=== PATIENT | male | born 1985 | race Caucasian/White ===

== ENCOUNTER 2016-10-20 08:30 | Outpatient (RCR) | payer OTHER ==
--- OUTSIDE RECORDS SUMMARY | 2016-09-16 08:14 | XMS REPORT ---
Author Author KOFFI WRIGHT Organization [employer] Address Unknown Phone Unavailable Care Team Providers Care Photographic Colorist Name Role Phone KOFFI WRIGHT CP Unavailable Allergies, Adverse Reactions, Alerts Substance Reaction Event Type N.K.D.A. 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 Problem Influenza with other respiratory manifestations 487.1 Active Assessment Poison poncho 692.6 Active Medications Medication Code System Code Instructions Start Date End Date Status Dosage PredniSONE [facility] [address]-02 20 MG Orally Twice a day Jul 31, 2015 Aug 05, 2015 1 tablet with food or milk Clobetasol Propionate [facility] [address]-31 0.05 % Externally Twice a day Jul 31, 2015 1 application to affected area Procedures Procedure Coding System Code Date Office Visit, Est Pt., Level 3 CPT-4 44108 Jul 31, 2015 Vital Signs Date/Time: Jul 31, 2015 Cardiac Monitoring Heart Rate 88 bpm Temperature 97.9 F Height 71 in Blood Pressure Diastolic 94 mmHg Blood Pressure Systolic 136 mmHg Results No Known Results Summary Purpose [employer] Submission
== END 2016-11-25 10:02 | disposition home or self-care (01) ==
PROVIDERS: ATTEND Family Medicine
DX: M54.41 Lumbago with sciatica, right side (principal)

== ENCOUNTER → 2017-01-04 | Outpatient (CLI) | payer OTHER ==
--- NOTE | 2017-01-04 14:17 | Diagnostic Imaging Report ---
Three views of the lumbar spine. INDICATION: Low back pain. FINDINGS: There is straightening of the upper to mid lumbar spine curvature. The alignment of the posterior spinal line is satisfactory. The vertebral body heights are preserved. No significant disc height loss. There are anterior osteophytes seen at the T12-L1 level. The SI joints appear unremarkable. IMPRESSION: Minimal degenerative changes. Dictated by: Dictated on workstation # [id number]
== END ==
LOC: RAD 09:52
PROVIDERS: ATTEND Family Medicine
DX: M54.5 Low back pain (principal)
CPT/HCPCS: 72100

== ENCOUNTER → 2017-01-13 | Outpatient (CLI) | payer OTHER ==
--- NOTE | 2017-01-13 12:26 | Diagnostic Imaging Report ---
PROCEDURE: MRI lumbar spine. TECHNIQUE: Multiplanar, multisequence MRI of the lumbar spine was performed without contrast. INDICATION: Low back pain with right leg pain. FINDINGS: There are no previous MRI examinations available for comparison. The plain film examination of the lumbar spine performed on 01/04/2017 failed to show any sign of an acute abnormality. On the parasagittal images of this exam, there does appear to be slight retrolisthesis of L5 with respect to S1. There is also mild narrowing and desiccation of the disc at L5-S1. Furthermore, there is a disc protrusion to the right at this level. The disc compresses the right ventral aspect of the thecal sac and narrows the AP diameter to approximately 5.6 mm. The disc is in close proximity to the origin of the exiting right nerve root and may encroach upon the nerve root. The alignment of the other vertebral bodies is within normal limits and the other intervertebral spaces are fairly well maintained. The thecal sac itself is somewhat slender. Most likely, this is a developmental variant. There is no evidence for spinal stenosis or nerve root encroachment at any level. At the T12-L1 level, there is moderate narrowing and desiccation of the disc. There is no sign of spinal stenosis or nerve root encroachment at this level. There is no abnormal signal arising from the cord or other vertebral bodies to indicate an acute abnormality. There is no sign of a paraspinal mass. IMPRESSION: 1. There is disc protrusion to the right at L5-S1. The disc compresses the right ventral aspect of the thecal sac and does produce spinal stenosis. The disc is also in close proximity to the exiting right nerve root and may encroach upon the nerve root. 2. The remainder of the lumbar spine is unremarkable for spinal stenosis or nerve root encroachment. 3. There is no sign of an acute bony abnormality or of a cord lesion. Dictated by: Dictated on workstation # [id number]
== END ==
LOC: RAD 09:35
PROVIDERS: ATTEND Family Medicine
DX: M51.36 Other intervertebral disc degeneration, lumbar region (principal)
CPT/HCPCS: 72148

== ENCOUNTER 2017-01-28 08:43 | Outpatient (CLI) | payer OTHER ==
[~2017-01-28] VITALS: Ht 177.8 cm; Wt 93.0 kg
[2017-01-28] MEDS ORDERED: BUPIVACAINE 0.25% 30 ML (SENSORCAINE) VIAL ONE (08:54)
[2017-01-28] MEDS ORDERED: TRIAMCINOLONE ACET (KENALOG-40) 40 MG/ML 1 ML VIAL ONE (08:54)
[2017-01-28 09:02] VITALS: BP 147/100
[2017-01-28 09:27] VITALS: BP 149/96
--- NOTE | 2017-01-28 12:20 | Pain Medicine-Procedure ---
Procedure Pre-Op/Post-Op Diagnosis Diagnosis: Disc disorder with radiculopathy, lumbar Indications for Operation Low back pain Attending Surgeon Samy Procedure Date of Service: Jan 28, 2017 Procedure: Lumbar Epidural Steroid Injection at the L5-S1 level under Fluoroscopic Guidance Procedure: Patient was identified in the holding area. After risks, benefits, and alternatives were discussed with the patient, informed consent was obtained. Patient was brought to the fluoroscopy suite and placed prone on the procedure room table. A time out was performed. Vital signs were monitored throughout the procedure. The patients low back was prepped and draped in the usual sterile fashion. The patients skin was anesthetized using 2% Lidocaine. A Tuohy needle was inserted and advanced to the L5-S1 epidural space under fluoroscopic guidance using the loss of resistance technique and intermittent projection of fluoroscopy. There was no paresthesia with needle placement. The needle position was confirmed in both the AP and lateral view. After negative aspiration 2ml of contrast was injected under live fluoroscopy which showed good spread of the contrast in the epidural space at the appropriate level, there was no intravascular or subarachnoid spread. Again, after negative aspiration for heme or CSF, 2 ml of 0.25% Bupivicaine, 2ml of preservative free normal saline, and 80mg of Kenalog was injected. The needle was removed and a sterile bandage was placed and the patient was transferred to the recovery area in stable condition. After a brief period of observation, patient was discharged to home with no new neurological deficits and no apparent complications. Complications None KAMRON BYNUM MD Jan 28, 2017 12:20 pm
== END 2017-01-28 09:29 | disposition home or self-care (01) ==
LOC: CARD 08:43
PROVIDERS: ATTEND Pain Medicine Pain Medicine
DX: M51.16 Intervertebral disc disorders with radiculopathy, lumbar region (principal); Z79.899 Other long term (current) drug therapy
CPT/HCPCS: 62323

== ENCOUNTER → 2018-10-27 | Outpatient (CLI) | payer OTHER ==
--- NOTE | 2018-10-27 09:22 | Diagnostic Imaging Report ---
EXAMINATION: Magnetic resonance imaging of the left knee without intravenous contrast DATE: October 27, 2018. COMPARISON: None. INDICATION: 32-year-old male, left knee injury on August 17, 2018. Persistent left medial knee pain. TECHNIQUE: Multiplanar, multisequence non contrast enhanced MR imaging was accomplished. FINDINGS: MENISCI: There is an oblique tear with inferior surface extension involving the body and posterior horn of the medial meniscus extending towards the posterior root attachment. There is no current medial meniscal extrusion. The lateral meniscus is intact. LIGAMENTS AND TENDONS: The anterior and posterior cruciate ligaments are intact. The medial collateral ligament is intact. The iliotibial band, mid third lateral capsular ligament, fibular collateral ligament, biceps femoris tendon, and conjoined tendon are intact. The quadriceps tendon and patella ligament are intact. JOINT: The articular cartilage surfaces are intact. There is no knee joint effusion, prominent synovitis, or intra-articular body. BONE: There is minimal edema-like signal in the medial femoral condyle and medial tibial plateau which potentially could relate to low-grade bone contusions. There is no acute fracture. There are no pathognomonic signal changes of osteonecrosis. BURSAE AND SOFT TISSUES: There is a ruptured Santos's cyst. There is nonspecific prepatellar subcutaneous edema. IMPRESSION: 1. Oblique tear with inferior surface extension involving the body and posterior horn of the medial meniscus extending towards the posterior root attachment without current medial meniscal extrusion. 2. Intact lateral meniscus. 3. Intact anterior and posterior cruciate ligaments. Additional ligaments and tendons are intact. 4. Intact articular cartilage. No knee joint effusion, prominent synovitis, or intra-articular body. 5. Ruptured Santos's cyst. 6. Minimal edema-like signal in the medial femoral condyle and medial tibial plateau potentially reflecting low-grade bone contusions. No acute fracture. Dictated by: Dictated on workstation # [id number]
== END ==
LOC: RAD 08:01
PROVIDERS: ATTEND Orthopaedic Surgery
DX: S83.242A Other tear of medial meniscus, current injury, left knee, initial encounter (principal); M71.22 Synovial cyst of popliteal space [Baker], left knee
CPT/HCPCS: 73721

== ENCOUNTER 2019-10-07 03:43 | Emergency (ER) | payer OTHER ==
[~2019-10-07] VITALS: Ht 177 cm; Wt 85.0 kg
[2019-10-07] MEDS ORDERED: LIDOCAINE/EPI 2% 1:100,00 (XYLOCAINE) 20 ML VIAL INJ ONE (04:15)
[2019-10-07] MEDS ORDERED: L.E.T. SYRINGE 5 ML TOP ONE (04:15)
[2019-10-07] MEDS ORDERED: SODIUM BICARB 8.4% 50 MEQ/50 ML VIAL IV ONE (04:15)
--- NOTE | 2019-10-07 04:37 | ED General ---
General Chief Complaint: Skin/Wound Problems Stated Complaint: SWOLLEN KNOT ON REAR END Nursing Triage Note: Pt ambulates to RM 6 with c/o "hard knot above rectum" that's worse with pressure. Pt denies any Hx of hemorrhoids. Pt denies any bleeding or pus from area. Pt reates pain 7/10. Nursing Sepsis Screen: No Definite Risk Source of Information: Patient Exam Limitations: No Limitations History of Present Illness Date Seen by Provider: Oct 07, 2019 Time Seen by Provider: 03:59 Initial Comments This 33-year-old gentleman presents to the emergency room with a painful swelling in the anal area worsening over the last week. It has now started to disrupt his sleep. He denies any rectal bleeding or drainage of pus. He has no history of hemorrhoids or abscesses. Allergies and Home Medications Allergies Coded Allergies: No Known Drug Allergies (Unverified , 10/07/19) Patient Home Medication List Home Medication List Reviewed: Yes Review of Systems Review of Systems Constitutional: no symptoms reported EENTM: no symptoms reported Respiratory: no symptoms reported Cardiovascular: no symptoms reported Gastrointestinal: see HPI Genitourinary: no symptoms reported Musculoskeletal: no symptoms reported Skin: see HPI Psychiatric/Neurological: No Symptoms Reported Hematologic/Lymphatic: No Symptoms Reported Past Gzeawdf-Cftrcj-Szmgxt Hx Patient Social History Alcohol Use: Rarely Uses Recreational Drug Use: No Smoking Status: Never a Smoker 2nd Hand Smoke Exposure: No Recent Foreign Travel: No Contact w/Someone Who Travel: No Recent Infectious Disease Expo: No Recent Hopitalizations: No Physical Abuse: No Sexual Abuse: No Mistreated: No Fear: No Seasonal Allergies Seasonal Allergies: No Past Medical History Surgeries: No Respiratory: No Cardiac: Yes Hypertension Neurological: No Genitourinary: No Gastrointestinal: No Musculoskeletal: No Endocrine: No HEENT: No Cancer: No Psychosocial: No Integumentary: No Blood Disorders: No Physical Exam Vital Signs Vital Signs - First Documented 10/07/19 03:54 Temp 36.3 Pulse 75 Resp 20 B/P (MAP) 137/101 (113) Pulse Ox 99 O2 Delivery Room Air Capillary Refill : Less Than 3 Seconds Height, Weight, BMI Height: 5'10.00" Weight: 205lbs. 0.0oz. 92.426066np; 27.00 BMI Method: General Appearance: No Apparent Distress, WD/WN HEENT: Normal ENT Inspection Neck: Normal Inspection Respiratory: Lungs Clear, Normal Breath Sounds, No Accessory Muscle Use, No Respiratory Distress Cardiovascular: Regular Rate, Rhythm, No Edema, No Murmur Gastrointestinal: Normal Bowel Sounds, Non Tender, Soft Rectal: Other (large thrombosed hemorrhoid at the 3 o'clock position) Extremity: Normal Inspection, No Pedal Edema Neurologic/Psychiatric: Alert, Oriented x3, No Motor/Sensory Deficits, Normal Mood/Affect Procedures/Interventions Progress Topical LET was applied to the anus for topical anesthesia. Skin was then prepped with Betadine. Hemorrhoid and the base of the hemorrhoid were injected with lidocaine with epinephrine. Approximately 3-4 mL were used. A radial elliptical incision about 5 mm in length was then made to evacuate clots. There was minimal bleeding. Wound was dressed with triple antibiotic ointment and gauze. Progress/Results/Core Measures Suspected Sepsis Recent Fever Within 48 Hours: No Infection Criteria Present: None New/Unexplained Altered Menta: No Sepsis Screen: No Definite Risk SIRS Temperature: Pulse: 75 Respiratory Rate: 20 Blood Pressure 137 /101 Mean: 113 Results/Orders My Orders Orders - DONNA YADAV MD Let Solution (Let Solution) (10/07/19 04:15) Lidocaine/Epi 2% 1:100,000 (Xylocaine/Ep (10/07/19 04:15) Sodium Bicarbonate 8.4% Vial (Sodium Bic (10/07/19 04:15) Medications Given in ED Current Medications Medications Dose Ordered Sig/Martha Route Start Time Stop Time Status Last Admin Dose Admin Lidocaine/ Epinephrine 20 ml ONCE ONCE INJ 10/07/19 04:15 10/07/19 04:16 DC 10/07/19 04:29 20 ML Sodium Bicarbonate 50 meq ONCE ONCE IV 10/07/19 04:15 10/07/19 04:16 DC 10/07/19 04:29 50 MEQ Tetracaine/ Epinephrine/ Lidocaine 1 ea ONCE ONCE TOP 10/07/19 04:15 10/07/19 04:16 DC 10/07/19 04:29 1 EA Vital Signs/I&O 10/07/19 10/07/19 03:54 05:13 Temp 36.3 36.3 Pulse 75 75 Resp 20 20 B/P (MAP) 137/101 (113) 137/101 (113) Pulse Ox 99 99 O2 Delivery Room Air Room Air Capillary Refill : Less Than 3 Seconds Blood Pressure Mean: 113 POS Departure Impression Primary Impression: Thrombosed external hemorrhoid Disposition: 01 HOME, SELF-CARE Condition: Improved Departure-Patient Inst. Decision time for Depature: 04:50 Referrals: ROSALVA ROWLAND DO (PCP/Family) Primary Care Physician Patient Instructions: Hemorrhoids Add. Discharge Instructions: Take ibuprofen up to 600 mg every 6 hours and/or Tylenol (acetaminophen) up to 1000 mg every 6 hours as needed. You may use warm soapy sitz baths for comfort as well. Sit on a well cushioned surface such as a pillow for comfort. Keep your stools soft by eating a high fiber diet. You may additionally use a stool softener such as Colace for the next several days to keep your stool soft. Avoid vigorous wiping for the next several days. You may rinse and blot as an alternative. Drink plenty of clear liquids to stay well-hydrated and to keep stools soft. Expect some oozing of blood for the next couple of days. You may apply antibiotic ointment and gauze dressing to help control this. If bleeding occurs more than oozing, apply fresh gauze and lied down for 30 minutes. Return to care if this does not resolve the bleeding. Return to care if you have any concerns or complications. All discharge instructions reviewed with patient and/or family. Voiced understanding. Copy Copies To 1: ROSALVA ROWLAND JOSHUA T MD Oct 07, 2019 04:37 POS
[2019-10-07 05:13] VITALS: BP 137/101
== END 2019-10-07 05:13 | disposition home or self-care (01) ==
LOC: EDUNIT# 03:43 → ER 03:45
DX: K64.5 Perianal venous thrombosis (principal); I10 Essential (primary) hypertension
CPT/HCPCS: 99284

== ENCOUNTER → 2019-12-13 | Outpatient (CLI) | payer OTHER | LOC: CARD 14:24 | PROVIDERS: ATTEND Family Medicine | DX: I10 Essential (primary) hypertension (principal); R01.1 Cardiac murmur, unspecified | CPT/HCPCS: 93306 ==